=== PATIENT | female | born 1990 | race African-American/Black ===

== ENCOUNTER 2016-11-21 00:40 | Emergency (ER) | payer MEDICAID, OTHER ==
[~2016-11-21] VITALS: Ht 165.1 cm; Wt 63.0 kg
[~2016-11-21 00:40] MED LIST: PREN0.01 PO
[2016-11-21 00:42] VITALS: BP 129/74; PULSE 72; RESP 16; TEMP 98; O2SAT 100
[2016-11-21 02:05] VITALS: BP 128/70; PULSE 68; RESP 16; O2SAT 100
[2016-11-21] MEDS ORDERED: SODIUM CHLOR 0.9% 1000 ML INJ 1,000 ML IV ONE (02:25)
[2016-11-21] MEDS ORDERED: ONDANSETRON HCL 4 MG/2 ML VIAL IVP ONE (02:30)
[2016-11-21 02:47] LABS: AUTOMATED NEUTROPHIL # 11.1 TH/MM3 (1.8-7.7); BASOPHIL % 0.2 % (0.0-2.0); EOSINOPHIL % 0.3 % (0.0-4.0); HEMATOCRIT 40.5 % (35.0-46.0); HEMO FLAGS DIFF FINAL; LYMPH % 14.2 % (9.0-44.0); LYMPHOCYTE # 2.1 TH/MM3 (1.0-4.8); MEAN CELL VOLUME 83.2 FL (80.0-100.0); MEAN CORPUSCULAR HEMOGLOBIN 27.7 PG (27.0-34.0); MEAN CORPUSCULAR HGB CONC 33.2 % (32.0-36.0); MONO % 9.5 % (0.0-8.0); NEUT % 75.8 % (16.0-70.0); PLATELET COUNT 255 TH/MM3 (150-450); RED BLOOD COUNT 4.87 MIL/MM3 (4.00-5.30); WHITE BLOOD COUNT 14.7 TH/MM3 (4.0-11.0)
[2016-11-21 03:04] LABS: BICARBONATE 25.9 MEQ/L (21.0-32.0); POTASSIUM 3.2 MEQ/L (3.5-5.1)
[2016-11-21 03:15] VITALS: BP 130/68; PULSE 74; RESP 14; O2SAT 98
[2016-11-21] MEDS ORDERED: POTASSIUM CHLORIDE 20 MEQ CONTROLLED RELEASE TAB PO ONE (03:15)
[2016-11-21 04:20] VITALS: BP 122/72; PULSE 70; RESP 14; O2SAT 99
[2016-11-21 04:42] LABS: BLOOD, URINE NEG (NEG); GLUCOSE,URINE NEG (NEG); HYALINE CAST, URINE 5 /lpf (RARE); KETONE, URINE 150 mg/dL (NEG); MUCUS URINE MANY /lpf (OCC); NITRITE,URINE NEG (NEG); SQUAMOUS EPITHELIAL CELL URINE 8 /hpf (0-5); URINE COLOR YELLOW (YELLW/STRAW)
[2016-11-21] MEDS ORDERED: ZOFR4TAB3 SL (04:51)
[2016-11-21] MEDS ORDERED: MACR100C2 PO (04:51)
--- NOTE | 2016-11-21 04:51 | PD ---
HPI Chief Complaint: GI Complaint Time Seen by Provider: 02:25 Travel History International Travel<30 days: No Contact w/Intl Traveler<30days: No Traveled to known affect area: No History of Present Illness HPI Patient is a 3 para 2 no to be who arrives complaining of nausea vomiting for several days. She is 26 years old. She's had no fever. She's had no abnormal vaginal discharge or bleeding. She has not followed with an elementary ell teacher. She just found out she was a few days ago. She has no back pain. There is no abdominal pain. Severity moderate. Timing intermittent. PFSH Past Medical History Anemia: Yes Blood Disorders: No Cancer: No Cardiovascular Problems: No Endocrine: No Genitourinary: No Immune Disorder: No Musculoskeletal: No Neurologic: No Psychiatric: No Reproductive: Yes (ABNORMAL BLEEDING) Respiratory: No Tetanus Vaccination: Unknown Influenza Vaccination: No ?: : 3 Para: 2 Past Surgical History Surgical History: No Previous Surgery Section: No Social History Alcohol Use: No Tobacco Use: No Substance Use: No Allergies-Medications (Allergen,Severity, Reaction): Coded Allergies: No Known Allergies (Verified , 02/14/11) Reported Meds & Prescriptions Reported Meds & Active Scripts Active Zofran Odt (Ondansetron Odt) 4 Mg Tab 4 Mg SL Q8HR PRN Macrobid (Nitrofurantoin Monoh/Nitrofur Macro) 100 Mg Cap 100 Mg PO BID 5 Days Reported Vit ( Plus) (Prenat Multivit/Kay/Iron/Folic Ac) Tab 1 Tab PO DAILY Review of Systems Except as stated in HPI: all other systems reviewed are Neg Physical Exam Narrative GENERAL: 26-year-old female pleasant well-nourished well-developed no acute distress SKIN: Focused skin assessment warm/dry. HEAD: Atraumatic. Normocephalic. EYES: Pupils equal and round. No scleral icterus. No injection or drainage. ENT: No nasal bleeding or discharge. Mucous membranes pink and moist. NECK: Trachea midline. No JVD. CARDIOVASCULAR: Regular rate and rhythm. No murmur appreciated. RESPIRATORY: No accessory muscle use. Clear to auscultation. Breath sounds equal bilaterally. GASTROINTESTINAL: Abdomen soft, non-tender, nondistended. Hepatic and splenic margins not palpable. MUSCULOSKELETAL: No obvious deformities. No clubbing. No cyanosis. No edema. NEUROLOGICAL: Awake and alert. No obvious cranial nerve deficits. Motor grossly within normal limits. Normal speech. PSYCHIATRIC: Appropriate mood and affect; insight and judgment normal. Data Data Last Documented VS Vital Signs Date Time Temp Pulse Resp B/P Pulse Ox O2 Delivery O2 Flow Rate FiO2 11/21/16 04:20 70 14 122/72 99 Room Air 11/21/16 00:42 98.0 Vital signs reviewed Orders Beta Hcg (Quant/Titer) (11/21/16 02:25) Complete Blood Count With Diff (11/21/16 02:25) Basic Metabolic Panel (Bmp) (11/21/16 02:25) Ua Includes Microscopic (11/21/16 02:25) Iv Access Insert/Monitor (11/21/16 02:25) Sodium Chlor 0.9% 1000 Ml Inj (Ns 1000 M (11/21/16 02:25) Ondansetron Inj (Zofran Inj) (11/21/16 02:30) Potassium Chloride (Kcl) (11/21/16 03:15) Labs Laboratory Tests Test 11/21/16 11/21/16 02:33 04:26 White Blood Count 14.7 TH/MM3 Red Blood Count 4.87 MIL/MM3 Hemoglobin 13.5 GM/DL Hematocrit 40.5 % Mean Corpuscular Volume 83.2 FL Mean Corpuscular Hemoglobin 27.7 PG Mean Corpuscular Hemoglobin 33.2 % Concent Red Cell Distribution Width 13.0 % Platelet Count 255 TH/MM3 Mean Platelet Volume 8.8 FL Neutrophils (%) (Auto) 75.8 % Lymphocytes (%) (Auto) 14.2 % Monocytes (%) (Auto) 9.5 % Eosinophils (%) (Auto) 0.3 % Basophils (%) (Auto) 0.2 % Neutrophils # (Auto) 11.1 TH/MM3 Lymphocytes # (Auto) 2.1 TH/MM3 Monocytes # (Auto) 1.4 TH/MM3 Eosinophils # (Auto) 0.0 TH/MM3 Basophils # (Auto) 0.0 TH/MM3 CBC Comment DIFF FINAL Differential Comment Sodium Level 135 MEQ/L Potassium Level 3.2 MEQ/L Chloride Level 99 MEQ/L Carbon Dioxide Level 25.9 MEQ/L Anion Gap 10 MEQ/L Blood Urea Nitrogen 10 MG/DL Creatinine 0.80 MG/DL Estimat Glomerular Filtration 104 ML/MIN Rate Random Glucose 86 MG/DL Calcium Level 9.4 MG/DL Human Chorionic Gonadotropin, 92794 MIU/ML Quant Urine Color YELLOW Urine Turbidity HAZY Urine pH 6.0 Urine Specific [place] 1.033 Urine Protein 100 mg/dL Urine Glucose (UA) NEG mg/dL Urine Ketones 150 mg/dL Urine Occult Blood NEG Urine Nitrite NEG Urine Bilirubin NEG Urine Urobilinogen 2.0 MG/DL Urine Leukocyte Esterase TRACE Urine RBC 7 /hpf Urine WBC 6 /hpf Urine Squamous Epithelial 8 /hpf Cells Urine Hyaline Casts 5 /lpf Urine Mucus MANY /lpf Microscopic Urinalysis Comment MDM Medical Decision Making Medical Screen Exam Complete: Yes Emergency Medical Condition: Yes Medical Record Reviewed: Yes Differential Diagnosis IUP, UTI, ectopic , ov torsion, appendicitis, TOA, cervicitis, BV, Trichomoniasis, ov cyst, hernia, mittelschmerz, pain from menstruation Narrative Course CBC & BMP Diagram 11/21/16 02:33 Beta hCG 78,000 464 Urinalysis: Bacteriuria Potassium replenished The patient is resting comfortably and feels better, is alert and in no distress. The patients results and examination findings were discussed. The repeat examination is unremarkable and benign. The history, exam, diagnostic testing, and current condition do not suggest any significant pathology to warrant further testing, continued ED treatment, admission, or surgical evaluation at this point. The vital signs have been stable. The patient does not have uncontrollable pain, intractable vomiting, or other significant symptoms. The patient's condition is stable and appropriate for discharge. The patient will pursue further outpatient evaluation with a primary care physician or other designated or consulting physician as indicated in the discharge instructions. The patient expressed understanding and was agreeable with this plan. Diagnosis Primary Impression: Qualified Code: Z3A.09 - 9 weeks gestation of Additional Impressions: Nausea & vomiting Qualified Code: R11.2 - Nausea and vomiting, intractability of vomiting not specified, unspecified vomiting type Asymptomatic bacteriuria Referrals: Carlee Munoz MD 2 days Additional Instructions: You have a choice when it comes to health care, and we are glad that you chose [facility]. Hopefully, we have met your expectations on today's visit. You are welcome to return to [facility] at any time, as we are committed to meeting the health care needs of our community. Med/Other Pt SpecificInfo: Prescription(s) given Scripts Ondansetron Odt (Zofran Odt)4 Mg Tab4 Mg SL Q8HR PRN (Nausea/Vomiting) #6 TAB Ref 0 Prov:Boubacar Hendrix MD 11/21/16 Nitrofurantoin Monohydrate Macrocrystals (Macrobid)100 Mg [id number] Mg PO BID 5 Days Ref 0 Prov:Boubacar Hendrix MD 11/21/16 Disposition: 01 DISCHARGE HOME Condition: Stable Boubacar Hendrix MD November 21, 2016 04:51
== END 2016-11-21 05:09 | disposition home or self-care (01) ==
LOC: NEPC 00:40
DX: O21.0 Mild hyperemesis gravidarum (principal); R82.71 Bacteriuria; Z3A.09 9 weeks gestation of pregnancy
CPT/HCPCS: 80048; 81001; 84702; 85025; 96361; 96374; 99284; J2405; J7030

== ENCOUNTER 2017-06-19 21:57 | Inpatient (IN) | payer MEDICAID ==
[2017-06-19] VITALS (9 sets, daily range): BP systolic 120–134; BP diastolic 84–88; PULSE 77–89; RESP 16–18; TEMP 98.6
[~2017-06-19 21:57] MED LIST changes: +DIPHTH/TETANUS/ACEL PERTUSSIS (BOOSTER) 0.5 ML VIAL/PFS IM ONE; +MACR100C2 PO; +MEASLES, MUMPS, RUBELLA VACCINE 0.5 ML VIAL SQ ONE; +ZOFR4TAB3 SL
[2017-06-19] MEDS ORDERED: OXYTOCIN 10 UNIT/ML AMP ONE (22:26)
--- NOTE | 2017-06-19 22:31 | HHI.HP ---
History & Physical H&P Chief Complaint Contractions Date Seen: Jun 19, 2017 Travel History International Travel<30 Days: No Contact w/Intl Traveler<30Days: No Known Affected Area: No History of Present Illness HPI Patient is a 26 year old at 36/4 weeks gestation that presents to the [place] [facility] ED with a chief complaint of painful contractions that began an hour ago. She denies loss of fluid, vaginal bleeding, and abnormal vaginal discharge. Patient gets her care at [facility] and states that her has been uncomplicated. She is expecting a boy. Weeks Gestation: 3 Para: 2 : 4 : 1 History (Limited) History Past Medical History Medical History: Denies Significant Hx Obstetric History Obstetric History - -2 full-term vaginal deliveries Past Surgical History Surgical History: No Previous Surgery Family History Family History: Negative Social History Alcohol Use: No Tobacco Use: No Substance Abuse: No Allergies-Medications Allergies-Medications (Allergen,Severity, Reaction): Coded Allergies: No Known Allergies (Verified , 02/14/11) Home Meds Active Scripts Ondansetron Odt (Zofran Odt) 4 Mg Tab, 4 MG SL Q8HR Y for Nausea/Vomiting, #6 TAB 0 Refills Prov:Boubacar Hendrix MD 11/21/16 Nitrofurantoin Monohydrate Macrocrystals (Macrobid) 100 Mg Cap, 100 MG PO BID for Infection for 5 Days, CAP 0 Refills Prov:Boubacar Hendrix MD 11/21/16 Reported Medications Multivit/Min/Fol Ac/Iron/Pren ( Vit ( Plus)) Tab, 1 TAB PO DAILY 06/30/10 ROS Review of Systems Except as stated in HPI: all other systems reviewed are Neg Physical Exam Physical Exam Narrative GENERAL: Well-nourished, well-developed patient. SKIN: Warm and dry. HEAD: Normocephalic and atraumatic. EYES: No scleral icterus. No injection or drainage. ENT: No nasal drainage noted. Mucous membranes pink. Airway patent. NECK: Supple, trachea midline. No JVD. CARDIOVASCULAR: Regular rate and rhythm without murmurs, gallops, or rubs. RESPIRATORY: Breath sounds equal bilaterally. No accessory muscle use. ABDOMEN/GI: Abdomen soft, non-tender, bowel sounds present, no rebound, no guarding Gravid to 36 weeks size GENITOURINARY: External Genitalia: intact and normal in appearance Cervix: Anterior Dilatation: 10cm Effacement: 100% Station: +1 Presentation: cephalic Membranes: intact Uterine Contractions: numerous, strong intensity FHT's: Category: [-] Baseline: [-] Reactive: [-] Variability: [-] Decels: [-] EXTREMITIES: No cyanosis or edema. BACK: Nontender without obvious deformity. No CVA tenderness. NEUROLOGICAL: Awake and alert. Motor and sensory grossly within normal limits. Five out of 5 muscle strength in all muscle groups. Normal speech. Data Data Data Orders Orders Vital Signs (Adult) .ON ADMISSION (06/19/17 22:10) ^ Labor Status (06/19/17 22:10) Urinalysis - C+S If Indicated (06/19/17 22:10) ^ Non Stress Test (06/19/17 22:10) ^ Hydration (06/19/17 22:10) Ob (2e) Additional Admit Info (06/19/17 22:16) Oxytocin Inj (Pitocin Inj) (06/19/17 22:26) MDM MDM Medical Record Reviewed: Yes Interpretation(s) 26 y/o at 36/4 weeks gestation presents in active labor, completed stage 1 Plan 1. 36 weeks gestation, late -Intrauterine -Membranes intact, bulging bag - labs not available at time of ED evaluation 2. Active labor -Completed stage 1 of labor - dilated to 10cm, 100% effaced -Admit to L&D - immediate transfer to labor room -Expect precipitous vaginal delivery Diagnosis Diagnosis: Primary Impression: Uterine contractions during Eko,Abby Romero MD R2 Jun 19, 2017 22:31
[2017-06-19] MEDS ORDERED: WITCH HAZEL 50%/GLYCERIN 12.5% 40 PAD JAR TOPICAL PRN (22:45)
[2017-06-19] MEDS ORDERED: ZOLPIDEM TARTRATE 5 MG TAB PO PRN (22:45)
[2017-06-19] MEDS ORDERED: ALUMINUM/MAGNESIUM/SIMETH 30 ML CUP PO PRN (22:45)
[2017-06-19] MEDS ORDERED: oxyCODONE/ACETAMINOPHEN 5 MG/325 MG TAB PO PRN ×2 (22:45)
[2017-06-19] MEDS ORDERED: DOCUSATE SODIUM 50 MG/SENNA 8.6 MG TAB PO PRN (22:45)
[2017-06-19] MEDS ORDERED: ONDANSETRON ODT 4 MG TAB PO PRN (22:45)
[2017-06-19] MEDS ORDERED: OXYTOCIN 10 UNIT/ML AMP IM ONE (22:45)
[2017-06-19] MEDS ORDERED: BENZOCAINE 20% TOPICAL SPRAY 60 ML CAN TOPICAL PRN (22:45)
[2017-06-19] MEDS ORDERED: SODIUM CHLORIDE 0.9% FLUSH 10 ML FLUSH IV FLUSH SCH (22:45)
[2017-06-19] MEDS ORDERED: OXYTOCIN 30 UNITS-500ML PREMIX 500 ML IV SCH (22:45)
[2017-06-19] MEDS ORDERED: SODIUM CHLORIDE 0.9% FLUSH 10 ML FLUSH IV FLUSH PRN (22:45)
[2017-06-19] MEDS: IBUPROFEN 800 MG TAB PO PRN (23:00)
[2017-06-19] MEDS: ACETAMINOPHEN 325 MG TAB PO PRN (23:00)
[2017-06-20] VITALS (8 sets, daily range): BP systolic 106–132; BP diastolic 65–89; PULSE 56–79; RESP 16–18; TEMP 97.6–98.4; O2SAT 99
[2017-06-20 00:18] LABS: BACTERIA, URINE OCC /hpf; BLOOD, URINE MOD (NEG); COMMENT (UR) CULTURE INDICATED; CULTURE IF INDICATED CULTURE INDICATED; GLUCOSE,URINE NEG (NEG); KETONE, URINE NEG (NEG); MUCUS URINE MANY /lpf (OCC); NITRITE,URINE NEG (NEG); SQUAMOUS EPITHELIAL CELL URINE 69 /hpf (0-5); URINE COLOR YELLOW (YELLW/STRAW)
--- NOTE | 2017-06-20 01:48 | PD.OB.DELI ---
Weeks gestation: 36 Gest age assessed date: Jun 19, 2017 Pt started active labor?: Yes Active labor start date: Jun 19, 2017 Medical induction of labor?: No Artificial rupture of membrane: Yes Anesthesia: None Episiotomy: None Vaginal Delivery: Normal, Spontaneous, Precipitous Presentation: Occiput anterior Nuchal Cord: None Delayed cord clamping (45 sec): Yes : Male Delivery date: Jun 20, 2017 Delivery time: 22:25 One Minute : 9 Five Minute : 9 Weight: 2825g Placenta: Spontaneous delivery, Intact, 3 vessel cord Laceration: No lacerations Estimated blood loss: 100cc Additional Information Precipitous delivery performed by Dr. Aden, supervised by Dr. Baum. No lacerations. Mom and baby boy are doing well. Abby Aden MD R2 Jun 20, 2017 01:48
[2017-06-20] MEDS: IBUPROFEN 800 MG TAB PO PRN ×3 (04:57→23:19)
[2017-06-20] MEDS: ACETAMINOPHEN 325 MG TAB PO PRN ×4 (04:57→23:18)
--- NOTE | 2017-06-20 10:04 | HHI.OB ---
Subjective Post Day: 1 Remarks day #1. AFVSS overnight. Pain well controlled. Lochia less than a period. Denies dysuria. She is feeding the baby via breast. Appetite good. No nausea or vomiting. Negative flatus. Negative bowel movement. Ambulating well. Denies calf pain, shortness of breath, or chest pain. Otherwise, she is doing well this morning and has no other complaints. Objective Vitals/I&O Vital Signs Date Time Temp Pulse Resp B/P (MAP) Pulse Ox O2 Delivery O2 Flow Rate FiO2 06/20/17 08:00 97.9 72 16 119/65 (83) 99 06/20/17 05:05 56 18 128/83 (98) 06/20/17 05:04 98.2 06/20/17 01:00 132/89 (103) 06/20/17 01:00 98.2 76 18 06/20/17 00:10 97.6 06/20/17 00:10 18 06/20/17 00:01 79 06/20/17 00:01 106/66 (79) 06/20/17 00:00 18 06/19/17 23:45 84 132/85 (101) 06/19/17 23:41 16 06/19/17 23:31 77 130/88 (102) 06/19/17 23:30 18 06/19/17 23:15 18 06/19/17 23:15 82 134/84 (101) 06/19/17 23:02 85 127/86 (100) 06/19/17 22:54 98.6 06/19/17 22:52 18 06/19/17 22:48 89 120/86 (97) Objective Remarks GENERAL: Well-nourished, well-developed patient. CARDIOVASCULAR: Regular rate and rhythm without murmurs, gallops, or rubs. RESPIRATORY: Breath sounds equal bilaterally. No accessory muscle use. ABDOMEN/GI: Abdomen soft, non-tender. Fundus: Firm, non-tender at umbilicus. GENITOURINARY: Light to moderate bleeding. EXTREMITIES: No cyanosis or edema, non-tender, without signs of DVT. Medications and IVs Current Medications Medications (Trade) Dose Ordered Sig/Emily Route Start Time Stop Time Status Last Admin (NS Flush) 2 ml BID IV FLUSH 06/19/17 22:45 (NS Flush) 2 ml UNSCH PRN IV FLUSH 06/19/17 22:45 (Tylenol) 650 mg Q4H PRN PO 06/19/17 22:45 06/19/17 23:00 (Motrin) 800 mg Q8H PRN PO 06/19/17 22:45 06/19/17 23:00 (Percocet 5-325 Mg) 1 tab Q4H PRN PO 06/19/17 22:45 (Percocet 5-325 Mg) 2 tab Q4H PRN PO 06/19/17 22:45 (Americaine 20% Top Spr) 1 spray Q4H PRN TOPICAL 06/19/17 22:45 (Tucks Pads) 1 applic QID PRN TOPICAL 06/19/17 22:45 (Candi-Colace) 2 tab Q12H PRN PO 06/19/17 22:45 (Ambien) 5 mg HS PRN PO 06/19/17 22:45 (Mag-Al Plus Susp Liq) 15 ml Q8H PRN PO 06/19/17 22:45 (Zofran Odt) 4 mg Q6H PRN PO 06/19/17 22:45 06/19/17 23:00 Assessment/Plan Problem List: (1) Spontaneous vaginal delivery ICD Codes: O80 - Encounter for full-term uncomplicated delivery Assessment and Plan 26y/o female who is PPD#1 s/p precipitous vaginal delivery -Continue routine care -Motrin and Percocet PRN for pain -Pericolase PRN for constipation -Encouraged OOB. Advised pelvic rest for 6 wks -Will need a follow-up appointment within 6 wks for post- check -Re: ctrl - patient is considering options Discussed with Dr. Baum Discharge Planning Discharge home in 1-2 days Abby Aden MD R2 Jun 20, 2017 10:04
[2017-06-20 12:55] LABS: AUTOMATED NEUTROPHIL # 11.7 TH/MM3 (1.8-7.7); BASOPHIL # 0.1 TH/MM3 (0-0.2); BASOPHIL % 0.6 % (0.0-2.0); EOSINOPHIL # 0.2 TH/MM3 (0-0.4); EOSINOPHIL % 1.4 % (0.0-4.0); HEMATOCRIT 31.2 % (35.0-46.0); HEMO FLAGS DIFF FINAL; LYMPH % 14.7 % (9.0-44.0); LYMPHOCYTE # 2.4 TH/MM3 (1.0-4.8); MEAN CELL VOLUME 85.1 FL (80.0-100.0); MEAN CORPUSCULAR HEMOGLOBIN 28.4 PG (27.0-34.0); MEAN CORPUSCULAR HGB CONC 33.4 % (32.0-36.0); MONO % 12.3 % (0.0-8.0); PLATELET COUNT 289 TH/MM3 (150-450); RED BLOOD COUNT 3.66 MIL/MM3 (4.00-5.30); WHITE BLOOD COUNT 16.5 TH/MM3 (4.0-11.0)
[2017-06-20 14:05] LABS: RUBELLA IGG ANTIBODY 0.9 IU/mL (10.0-500.0); RUBELLA STATUS NON-IMMUNE (IMMUNE)
[2017-06-21 03:53] LABS: CHLAMYDIA PCR NOT DETECTED (NOT DETECT); NEISSERIA PCR NOT DETECTED (NOT DETECT)
[2017-06-21] MEDS: IBUPROFEN 800 MG TAB PO PRN ×2 (06:37→16:40)
[2017-06-21] MEDS: ACETAMINOPHEN 325 MG TAB PO PRN ×2 (06:37→16:40)
[2017-06-21 08:10] VITALS: BP 113/73; PULSE 74; RESP 16; TEMP 98.1
--- NOTE | 2017-06-21 09:18 | HHI.OB ---
Subjective Post Day: 2 Remarks Patient is a 26-year-old delivered at 36 weeks and 0 days. Patient is day 2 after precipitous . Patient's pain is well-controlled. Patient reports eating and drinking without any nausea or vomiting. Patient reports minimal bleeding. Patient has passed gas but no bowel movements. Patient is walking without lower extremity pain or shortness of breath. Patient reports desire for contraception and both formula- and breast-feeding. Objective Vitals/I&O Vital Signs Date Time Temp Pulse Resp B/P (MAP) Pulse Ox O2 Delivery O2 Flow Rate FiO2 06/20/17 20:10 98.4 78 18 114/75 (88) Objective Remarks GENERAL: Well-nourished, well-developed patient. CARDIOVASCULAR: Regular rate and rhythm without murmurs, gallops, or rubs. RESPIRATORY: Breath sounds equal bilaterally. No accessory muscle use. ABDOMEN/GI: Abdomen soft, non-tender. Fundus: Firm, non-tender at umbilicus. GENITOURINARY: Light to moderate bleeding. EXTREMITIES: No cyanosis or edema, non-tender, without signs of DVT. Medications and IVs Current Medications Medications (Trade) Dose Ordered Sig/Emily Route Start Time Stop Time Status Last Admin (NS Flush) 2 ml BID IV FLUSH 06/19/17 22:45 (NS Flush) 2 ml UNSCH PRN IV FLUSH 06/19/17 22:45 (Tylenol) 650 mg Q4H PRN PO 06/19/17 22:45 06/21/17 06:37 (Motrin) 800 mg Q8H PRN PO 06/19/17 22:45 06/21/17 06:37 (Percocet 5-325 Mg) 1 tab Q4H PRN PO 06/19/17 22:45 (Percocet 5-325 Mg) 2 tab Q4H PRN PO 06/19/17 22:45 (Americaine 20% Top Spr) 1 spray Q4H PRN TOPICAL 06/19/17 22:45 (Tucks Pads) 1 applic QID PRN TOPICAL 06/19/17 22:45 (Candi-Colace) 2 tab Q12H PRN PO 06/19/17 22:45 (Ambien) 5 mg HS PRN PO 06/19/17 22:45 (Mag-Al Plus Susp Liq) 15 ml Q8H PRN PO 06/19/17 22:45 (Zofran Odt) 4 mg Q6H PRN PO 06/19/17 22:45 06/19/17 23:00 Assessment/Plan Problem List: (1) Spontaneous vaginal delivery ICD Codes: O80 - Encounter for full-term uncomplicated delivery Assessment and Plan Patient is a 26-year-old delivered at 36 weeks and 0 days. Patient is day 2 after precipitous . Patient was counseled to do 6 weeks of pelvic rest. Patient was counseled to follow up in 6 weeks. Patient requested contraception. --AF VSS -Continue routine care -Motrin and Percocet PRN for pain -Pericolase PRN for constipation -Encouraged OOB. Advised pelvic rest for 6 wks -Will need a follow-up appointment within 6 wks for post- check -Re: ctrl - patient requested Depo-Provera Discussed with Dr. Zepeda Discharge Planning Discharge home today. Cachorro Merino MD R2 Jun 21, 2017 09:18
[2017-06-21] MEDS ORDERED: ACET325T15 PO (09:19)
[2017-06-21] MEDS ORDERED: IBUP1TAB7 PO (09:19)
--- NOTE | 2017-06-21 09:20 | HHI.DCPOC ---
Discharge Care Plan Diagnosis: (1) Spontaneous vaginal delivery Report Symptoms to Your Doctor -Temperature above 100.5 degrees -Redness, of incision or excessive or foul smelling drainage -Unusual pain or calf pain -Increased vaginal bleeding -Painful or difficulty urinating -Feelings of extreme sadness or anxiety after 2 weeks Goals to Promote Your Health * To prevent worsening of your condition and complications, please follow-up with your doctor within 6 weeks. * To maintain your health at the optimal level, please follow medical recommendations. Directions to Meet Your Goals Take your medications as prescribed Follow your dietary instruction Follow activity as directed Ensure plenty of rest for recovery Drink fluids for hydration Keep your appointments as scheduled Take your immunizations and boosters as scheduled If your symptoms worsen call your PCP, if no PCP go to Urgent Care Center or Emergency Room Smoking is Dangerous to Your Health. Avoid second hand smoke Call the 24-hour crisis hotline for domestic abuse at Cachorro Merino MD R2 Jun 21, 2017 09:20
[2017-06-21] MEDS ORDERED: medroxyPROGESTERone ACETATE SUSP 150 MG/ML SYRINGE IM ONE (09:30)
== END 2017-06-21 18:23 | disposition home or self-care (01) | DRG 775 ==
LOC: HOBED 21:57 → H2EB 22:17 → H1EA 06-20 00:44
PROVIDERS: ADMIT Obstetrics & Gynecology; ATTEND Obstetrics & Gynecology
PROC: 10E0XZZ Delivery of Products of Conception, External Approach (ICD-10-PCS; principal; 2017-06-20)
DX: O60.14X0 Preterm labor third trimester with preterm delivery third trimester, not applicable or unspecified (principal); O62.3 Precipitate labor; Z37.0 Single live birth; Z3A.36 36 weeks gestation of pregnancy
CPT/HCPCS: 80074; 80307; 81001; 85025; 86592; 86703; 86762; 86850; 86900; 86901; 87081; 87086; 87150; 87491; 87591; J1050; J2590